=== PATIENT | female | born 1980 | race American Indian/Alaskan Native ===

== ENCOUNTER 2018-09-17 23:27 | Emergency (ER) | payer MEDICAID ==
[2018-09-17] MEDS ORDERED: NACL 0.9% 500 ML 500 ML IV ONE (23:39)
[2018-09-17] MEDS ORDERED: TYLENOL PO ONE (23:49)
[2018-09-17] MEDS ORDERED: NACL 0.9% 1000 ML 1,000 ML IV ONE ×2 (23:49→23:50)
[2018-09-17] MEDS ORDERED: ZOFRAN IV ONE (23:49)
--- NOTE | 2018-09-17 23:55 | Emergency Department Report ---
ED Abdominal Pain HPI - General Chief Complaint: Urogenital-Female Stated Complaint: FLANK PAIN/PAINFUL URINATION Time Seen by Provider: 09/17/18 23:46 Source: patient Mode of arrival: Ambulatory Limitations: No Limitations - History of Present Illness Initial Comments: Patient is 38 years old female with history of hypertension. Patient presented to the ER complaining of left flank pain and lower quadrants abdominal pain for the last 2 days associated with excessive vomiting and fever. Patient denied any chest pain or shortness of breath. MD Complaint: abdominal pain, flank pain - Related Data Allergies Allergy/AdvReac Type Severity Reaction Status Date / Time No Known Allergies Allergy Unverified 09/17/18 23:34 ED Review of Systems ROS: Stated complaint: FLANK PAIN/PAINFUL URINATION Other details as noted in HPI Comment: All other systems reviewed and negative Constitutional: chills, fever Respiratory: denies: cough, orthopnea, shortness of breath, SOB with exertion, SOB at rest, wheezing Cardiovascular: denies: chest pain, palpitations, dyspnea on exertion Gastrointestinal: abdominal pain, nausea, vomiting, diarrhea. denies: constipation Genitourinary: urgency, dysuria. denies: frequency Musculoskeletal: back pain ED Past Medical Hx - Past Medical History Hx Hypertension: Yes - Surgical History Past Surgical History?: No - Social History Smoking Status: Never Smoker Substance Use Type: None ED Physical Exam - General Limitations: No Limitations General appearance: alert, in no apparent distress - Head Head exam: Present: atraumatic, normocephalic, normal inspection - Eye Eye exam: Present: normal appearance - ENT ENT exam: Present: normal exam, normal orophraynx, mucous membranes moist - Neck Neck exam: Present: normal inspection, full ROM. Absent: tenderness, meningismus, lymphadenopathy, thyromegaly - Respiratory Respiratory exam: Present: normal lung sounds bilaterally - Cardiovascular Cardiovascular Exam: Present: tachycardia - GI/Abdominal GI/Abdominal exam: Present: soft, normal bowel sounds. Absent: distended, tenderness, guarding, rebound, rigid, organomegaly, mass, bruit, pulsatile mass, hernia - Extremities Exam Extremities exam: Present: normal inspection, full ROM, normal capillary refill. Absent: pedal edema, calf tenderness - Back Exam Back exam: Present: normal inspection, full ROM, CVA tenderness (L). Absent: CVA tenderness (R) - Neurological Exam Neurological exam: Present: alert, oriented X3, CN II-XII intact, normal gait, reflexes normal - Skin Skin exam: Present: warm, intact, normal color ED Course Vital Signs 09/17/18 09/18/18 09/18/18 23:34 00:15 00:16 Temperature 103.5 F H 103.1 F H Pulse Rate 130 H 112 H Respiratory 20 21 Rate Blood Pressure 115/84 128/85 O2 Sat by Pulse 100 98 Oximetry 09/18/18 09/18/18 09/18/18 00:19 01:45 01:50 Temperature 102.2 F H Pulse Rate 110 H 106 H Respiratory 23 15 Rate Blood Pressure 128/85 128/85 O2 Sat by Pulse 96 100 Oximetry 09/18/18 09/18/18 09/18/18 02:00 02:15 02:31 Temperature Pulse Rate 107 H 122 H 116 H Respiratory 18 18 13 Rate Blood Pressure 138/87 138/87 138/87 O2 Sat by Pulse 99 99 Oximetry 09/18/18 09/18/18 09/18/18 02:45 03:01 03:15 Temperature Pulse Rate 124 H 108 H 120 H Respiratory 30 H 25 H 16 Rate Blood Pressure 138/87 138/87 138/87 O2 Sat by Pulse 100 100 98 Oximetry 09/18/18 09/18/18 09/18/18 03:31 03:45 04:00 Temperature Pulse Rate 126 H 124 H 121 H Respiratory 24 17 25 H Rate Blood Pressure 138/87 138/87 137/80 O2 Sat by Pulse 98 99 97 Oximetry 09/18/18 04:01 Temperature 104.3 F H Pulse Rate Respiratory Rate Blood Pressure O2 Sat by Pulse Oximetry ED Medical Decision Making - Lab Data Result diagrams: 09/18/18 00:48 09/18/18 00:48 - Radiology Data Radiology results: report reviewed Referring Physician: HECTOR ADHIKARI Patient Name: GUSTABO ROMAN Date of : 1980 Sex: Female Report Date: 2018-09-18 Report Status: Finalized Findings [facility] [address] [place] [address] Cat Scan Report Signed Patient: GUSTABO ROMAN MR#: [id number] 30 : 1980 Acct:[id number] Age/Sex: 38 / F ADM Date: 09/17/18 Loc: ED Attending Dr: Ordering Physician: HECTOR ADHIKARI Date of Service: 09/18/18 Procedure(s): CT abdomen pelvis w con Accession Number(s): [id number] cc: HECTOR ToñoJayson ADHIKARI PROCEDURE: CT ABDOMEN PELVIS W CON TECHNIQUE: Routine axial imaging was obtained of the abdomen and pelvis following the intravenous injection of 1 cc of Omnipaque 350. Delayed imaging was obtained through the kidneys ureters and bladder. Sagittal and coronal reconstructions were reviewed. HISTORY: abdominal pain, left flank pain,fever COMPARISONS: None FINDINGS: The lung bases are negative for infiltrates or effusions. There is a small hiatal hernia. The gallbladder has been removed. The liver and biliary tree appear normal. The spleen and adrenal glands appear normal. The pancreas does not show any acute changes. There is perinephric stranding around the left kidney with very mild left-sided hydronephrosis. A stone is not seen in the left ureter. The left nephrogram is slightly heterogeneous. The right kidney is unremarkable. The bowel loops are normal in caliber and course. The appendix is not enlarged. The abdominal aorta is normal in caliber. The portal vein enhances normally. There is no evidence of free fluid or adenopathy. In the pelvis the uterus and bladder appear normal. The skeletal structures are well- maintained. IMPRESSION: Mild left-sided hydronephrosis with left-sided perinephric stranding and slight inhomogeneity in the left nephrogram. The findings may be secondary to a recently passed stone with residual hydronephrosis changes. Left-sided pyelonephritis may also have this appearance.. Cholecystectomy. No evidence of bowel obstruction or ileus. Normal appendix. This document is electronically signed by Stephanie Henry MD., Sep 18 2018 04:45:14 AM ET Transcribed By: RB Dictated By: STEPHAINE HENRY MD Electronically Authenticated By: STEPHANIE HENRY MD Signed Date/Time: 09/18/18446 DD/ 6 TD/TT: 09/18/18236 Critical care attestation.: If time is entered above; I have spent that time in minutes in the direct care of this critically ill patient, excluding procedure time. ED Disposition Clinical Impression: Abdominal pain, Pyelonephritis, Fever Disposition: DC-01 TO HOME OR SELFCARE Is pt being admited?: No Condition: Stable Instructions: Acute Pyelonephritis (ED) Referrals: JESSICA ALBA MD [Primary Care Provider] - 3-5 Days
--- NOTE | 2018-09-18 00:11 | XRay Report ---
PROCEDURE: XR CHEST 1V AP TECHNIQUE: Chest radiograph single view. HISTORY: Chest pain possible Sepsis COMPARISONS: None . FINDINGS: Heart: Normal. Mediastinum/Vessels: Normal. Lungs/Pleural space: Normal. Bony thorax: No acute osseous abnormality. Life support devices: None. IMPRESSION: No acute cardiopulmonary abnormality. This document is electronically signed by Stephanie Fitch DO., Sep 18 2018 12:09:47 AM ET
[2018-09-18] MEDS ORDERED: ZOSYN/NS 3.375GM/50ML 3.375 GM/50 ML BAG IV ONE (00:30)
[2018-09-18 01:02] LABS: Amorphous Crystals,Urine Few; Bacteria,Urine 4+ /HPF (Negative); Bilirubin,Urine NEG (Negative); Blood,Urine SM (Negative); Color,Urine Yellow (Yellow); Hyaline Casts,Urine 3 /LPF; Mucus,Urine FEW /HPF
[2018-09-18 01:04] LABS: WBC,Urine > 182.0 /HPF (0.0-6.0)
[2018-09-18 01:13] LABS: Basophils % (Auto) 0.1 % (0.0-1.8); Hematocrit 26.9 % (30.3-42.9); Hemoglobin 9.2 gm/dl (10.1-14.3); Lymphocytes # (Auto) 0.8 K/mm3 (1.2-5.4); Lymphocytes % (Auto) 7.5 % (13.4-35.0); Mean Corpuscular HGB Conc 34 % (30-34); Mean Corpuscular Volume 77 fl (79-97); Monocytes # (Auto) 0.4 K/mm3 (0.0-0.8); Monocytes % (Auto) 4.3 % (0.0-7.3); Platelet Count 265 K/mm3 (140-440); Red Blood Count 3.48 M/mm3 (3.65-5.03); Red Cell Distribution Width 16.7 % (13.2-15.2)
[2018-09-18 01:23] LABS: INR 1.12 (0.87-1.13)
[2018-09-18] MEDS ORDERED: MORPHINE IV ONE (01:36)
[2018-09-18 01:38] LABS: Alanine Aminotransferase 28 units/L (7-56); Albumin 3.6 g/dL (3.9-5); BUN/Creatinine Ratio 10; Blood Urea Nitrogen 10 mg/dL (7-17); Calcium 8.2 mg/dL (8.4-10.2); Hemolysis Index 0
[2018-09-18] MEDS ORDERED: MORPHINE ONE (01:39)
[2018-09-18] MEDS ORDERED: REGLAN IV ONE (03:12)
[2018-09-18] MEDS: KCL 10MEQ/100ML 10 MEQ/100 ML BAG IV SCH ×2 (03:59→05:44)
[2018-09-18] MEDS ORDERED: IBUPROFEN PO ONE (04:00)
[2018-09-18] MEDS ORDERED: IBUPROFEN ONE (04:03)
--- NOTE | 2018-09-18 04:47 | Cat Scan Report ---
PROCEDURE: CT ABDOMEN PELVIS W CON TECHNIQUE: Routine axial imaging was obtained of the abdomen and pelvis following the intravenous in jection of 1 cc of Omnipaque 350. Delayed imaging was obtained through the kidneys ureters and bladde r. Sagittal and coronal reconstructions were reviewed. HISTORY: abdominal pain, left flank pain,fever COMPARISONS: None FINDINGS: The lung bases are negative for infiltrates or effusions. There is a small hiatal hernia. The gallbladder has been removed. The liver and biliary tree appear normal. The spleen and adrenal gl ands appear normal. The pancreas does not show any acute changes. There is perinephric stranding around the left kidney with very mild left-sided hydronephrosis. A sto ne is not seen in the left ureter. The left nephrogram is slightly heterogeneous. The right kidney is unremarkable. The bowel loops are normal in caliber and course. The appendix is not enlarged. The abdominal aorta i s normal in caliber. The portal vein enhances normally. There is no evidence of free fluid or adenopa thy. In the pelvis the uterus and bladder appear normal. The skeletal structures are well-maintained. IMPRESSION: Mild left-sided hydronephrosis with left-sided perinephric stranding and slight inhomogeneity in the left nephrogram. The findings may be secondary to a recently passed stone with residual hydronephrosi s changes. Left-sided pyelonephritis may also have this appearance.. Cholecystectomy. No evidence of bowel obstruction or ileus. Normal appendix. This document is electronically signed by Zain Henry MD., Sep 18 2018 04:45:14 AM ET
[2018-09-18 06:21] VITALS: BP 113/64
== END 2018-09-18 06:48 | disposition home or self-care (01) ==
LOC: EDSEX → ED 23:27
DX: N12 Tubulo-interstitial nephritis, not specified as acute or chronic (principal); I10 Essential (primary) hypertension
CPT/HCPCS: 36415; 71045; 74177; 80053; 81001; 82140; 82805; 84703; 85025; 85610; 87040; 87076; 87086; 87186; 93005; 93010; 96361; 96365; 96375; 99285; J2270; J2405; J2543; J2765; J3480; J7030; J7040; Q9967

== ENCOUNTER 2019-03-08 13:57 | Emergency (ER) | payer SELFPAY ==
[2019-03-08] MEDS ORDERED: SODIUM CHLORIDE 0.9% 1000 ML 1,000 ML IV ONE (14:55)
--- NOTE | 2019-03-08 15:54 | Ultrasound Report ---
OB Ultrasound HISTORY: Vaginal Bleeding. TECHNIQUE: Grayscale and color Doppler imaging performed. COMPARISON: CT abdomen/pelvis from 09/18/2018 FINDINGS: Transabdominal and endovaginal imaging was performed. Uterus measures 11.0 x 6.2 x 7.0 cm with endometrial echo complex measuring 1.6 cm. The right ovary w as not visualized. The left ovary is normal in size with preserved blood flow. There is a 1.3 cm hypo echoic structure within the uterine wall outside of the endometrial lining posteriorly in the fundal region. There is no internal blood flow. There is a small amount of fluid within the lower uterine se gment which could represent blood clot. No appreciable pelvic free fluid identified. IMPRESSION: 1. Vague hypoechoic structure in the posterior uterine wall near the fundus as outlined above could r epresent a fibroid. No convincing IUP identified. 2. Nonvisualization of the right ovary. 3. Small amount of fluid within the lower uterine segment could represent blood clot. 4. Otherwise nothing acute. Signer Name: Carlos Solis MD Signed: 03/08/2019 3:50 PM Workstation Name: [id number]
[2019-03-08 16:01] LABS: Basophils % (Auto) 0.2 % (0.0-1.8); Eosinophils # (Auto) 0.1 K/mm3 (0.0-0.4); Eosinophils % (Auto) 0.7 % (0.0-4.3); Hematocrit 27.4 % (30.3-42.9); Hemoglobin 9.1 gm/dl (10.1-14.3); Lymphocytes # (Auto) 1.3 K/mm3 (1.2-5.4); Lymphocytes % (Auto) 17.7 % (13.4-35.0); Mean Corpuscular HGB Conc 33 % (30-34); Mean Corpuscular Volume 80 fl (79-97); Monocytes # (Auto) 0.4 K/mm3 (0.0-0.8); Monocytes % (Auto) 6.1 % (0.0-7.3); Platelet Count 307 K/mm3 (140-440); Red Blood Count 3.44 M/mm3 (3.65-5.03); Red Cell Distribution Width 17.2 % (13.2-15.2)
[2019-03-08 16:19] LABS: Alanine Aminotransferase 6 units/L (7-56); Albumin 4.1 g/dL (3.9-5); BUN/Creatinine Ratio 9; Blood Urea Nitrogen 6 mg/dL (7-17); Calcium 8.9 mg/dL (8.4-10.2); Hemolysis Index 33
[2019-03-08 16:39] LABS: HCG Qualitative,Urine Positive (Negative)
[2019-03-08 16:41] LABS: Bacteria,Urine 1+ /HPF (Negative); Bilirubin,Urine NEG (Negative); Blood,Urine LG (Negative); Color,Urine Red (Yellow); Mucus,Urine FEW /HPF; Urobilinogen,Urine < 2.0 mg/dL (<2.0)
[2019-03-08 16:42] LABS: RBC,Urine > 182.0 /HPF (0.0-6.0)
--- NOTE | 2019-03-08 17:47 | Emergency Department Report ---
ED Female HPI - General Chief complaint: Vaginal Bleeding Stated complaint: MISCARRIAGE Time Seen by Provider: 03/08/19 14:36 Source: patient Mode of arrival: Ambulatory Limitations: No Limitations - History of Present Illness MD Complaint: vaginal bleeding -: Gradual, days(s) Radiation: suprapubic Severity: mild Severity scale (0 -10): 1 Quality: cramping Consistency: intermittent Improves with: none Worsens with: none Are you Now?: Yes Associated Symptoms: vaginal bleeding. denies: vaginal discharge, abdominal pain, nausea/vomiting, fever/chills, headaches, loss of appetite, dysuria, rash, seizure, shortness of breath, syncope, weakness - Related Data Previous Rx's Medication Instructions Recorded Last Taken Type Ciprofloxacin HCl [Ciprofloxacin 500 mg PO Q12H #14 tab 09/18/18 Unknown Rx TAB] Ondansetron [Zofran Odt] 4 mg PO Q8HR PRN #14 tab.rapdis 09/18/18 Unknown Rx traMADol [Ultram] 50 mg PO Q6HR PRN #14 tablet 09/18/18 Unknown Rx Allergies Allergy/AdvReac Type Severity Reaction Status Date / Time No Known Allergies Allergy Unverified 09/17/18 23:34 ED Review of Systems ROS: Stated complaint: MISCARRIAGE Other details as noted in HPI Other: GENERAL: No weight change, fatigue, fever, chills, or night sweats SKIN: No changes in skin or hair, no itching, no rashes, no jaundice HEAD: No trauma, headache, or visual changes EYES: No blurriness, tearing, itching, acute visual loss, conjunctival discoloration, or scleral icterus EARS: No hearing loss, tinnitus, vertigo, or earache NOSE: No rhinorrhea, stuffiness, sneezing, itching, or epistaxis MOUTH: No bleeding gums, hoarseness, sore throat, or swelling CARDIAC: No new murmur, chest pain, palpitations, dyspnea on exertion, orthopnea, PND, or edema RESPIRATORY: No shortness of breath, wheeze, cough, sputum production, hemoptysis, pneumonia, asthma, bronchitis, or emphysema GI: No change in appetite, nausea, vomiting, dysphagia, diarrhea, constipation, hematemesis, melena, hematochezia, or abdominal pain URINARY: No frequency, urgency, polyuria, dysuria, hematuria, or incontinence MUSCULOSKELETAL: No muscle weakness, joint stiffness, decrease in range of motion, redness, swelling NEUROLOGIC: No headache, syncope, loss of sensation, numbness, tingling, tremors, weakness, paralysis, seizures HEMATOLOGIC: No anemia, easy bruising, bleeding, petechiae, or purpura ENDOCRINE: No hot or cold intolerance, sweating, polyuria, polydipsia or, polyp hagia no thyroid problems PSYCHIATRIC: No change in mood, no anxiety, no depression GENITAL: Female: Vag bleeding. No dishcarge ED Past Medical Hx - Past Medical History Previous Medical History?: Yes Hx Hypertension: Yes Additional medical history: Abortions x 3, Vaginal delivery x 14, Miscarriage x1 - Surgical History Past Surgical History?: Yes Additional Surgical History: D&C times 3 - Social History Smoking Status: Never Smoker Substance Use Type: Prescribed - Medications Home Medications: Home Medications Medication Instructions Recorded Confirmed Last Taken Type Ciprofloxacin HCl [Ciprofloxacin 500 mg PO Q12H #14 tab 09/18/18 Unknown Rx TAB] Ondansetron [Zofran Odt] 4 mg PO Q8HR PRN #14 tab.rapdis 09/18/18 Unknown Rx traMADol [Ultram] 50 mg PO Q6HR PRN #14 tablet 09/18/18 Unknown Rx ED Physical Exam - General Limitations: No Limitations - Other Other exam information: GENERAL: Patient in no acute distress HEAD: Normocephalic, atraumatic EYES: PERRLA, EOM intact, no scleral icterus, no conjunctival hemorrhage, visual valdez and acuity wnl NOSE: No tenderness, discharge, sinus tenderness MOUTH: No erythema, bleeding, exudate HEART: Regular rate and rhythm, no murmur, S1-S2 are auscultated, no edema, pulses are symmetric LUNGS: No respiratory distress. Bilateral breath sounds, No tachypnea, No retractions, No wheezing, rales, rhonchi ABDOMEN: Normal bowel sounds, abdomen soft, no tenderness, no rebound, no guarding, no distention, no masses, no CVA tenderness MUSCULOSKELETAL: Normal joint range of motion, no redness, no swelling, no tenderness NEUROLOGIC: GCS 15, Alert and Oriented x3, Cranial nerves intact, normal sensation, normal strength, no cerebellar deficit, NIHSS 0 PSYCHIATRIC: No homicidal or suicidal ideation, no anxiety, no depression, no hallucinations SKIN: Skin is warm and dry, no wounds, no rashes ED Course Vital Signs 03/08/19 13:57 Temperature 98.9 F Pulse Rate 117 H Respiratory 20 Rate Blood Pressure 154/98 O2 Sat by Pulse 99 Oximetry ED Medical Decision Making - Lab Data Result diagrams: 03/08/19 15:44 03/08/19 15:44 Laboratory Results - last 24 hr 03/08/19 03/08/19 03/08/19 15:44 15:44 15:44 WBC 7.3 RBC 3.44 L Hgb 9.1 L Hct 27.4 L MCV 80 MCH 26 L MCHC 33 RDW 17.2 H Plt Count 307 Lymph % (Auto) 17.7 Crane % (Auto) 6.1 Eos % (Auto) 0.7 Baso % (Auto) 0.2 Lymph # 1.3 Crane # 0.4 Eos # 0.1 Baso # 0.0 Seg Neutrophils % 75.3 H Seg Neutrophils # 5.5 Sodium 140 Potassium 3.0 L Chloride 103.5 Carbon Dioxide 24 Anion Gap 16 BUN 6 L Creatinine 0.7 Estimated GFR > 60 BUN/Creatinine Ratio 9 Glucose 105 H Calcium 8.9 Total Bilirubin 0.20 AST 13 ALT 6 L Alkaline Phosphatase 55 Total Protein 7.0 Albumin 4.1 Albumin/Globulin Ratio 1.4 HCG, Quant 2223 H Urine Color Urine Turbidity Urine pH Ur Specific [place] Urine Protein Urine Glucose (UA) Urine Ketones Urine Blood Urine Nitrite Ur Reducing Substances Urine Bilirubin Urine Ictotest Urine Urobilinogen Ur Leukocyte Esterase Urine WBC (Auto) Urine RBC (Auto) Urine Bacteria (Auto) Urine Mucus Urine HCG, Qual Blood Type Antibody Screen 03/08/19 03/08/19 15:44 16:26 WBC RBC Hgb Hct MCV MCH MCHC RDW Plt Count Lymph % (Auto) Crane % (Auto) Eos % (Auto) Baso % (Auto) Lymph # Crane # Eos # Baso # Seg Neutrophils % Seg Neutrophils # Sodium Potassium Chloride Carbon Dioxide Anion Gap BUN Creatinine Estimated GFR BUN/Creatinine Ratio Glucose Calcium Total Bilirubin AST ALT Alkaline Phosphatase Total Protein Albumin Albumin/Globulin Ratio HCG, Quant Urine Color Red Urine Turbidity Clear Urine pH 7.0 Ur Specific [place] 1.005 Urine Protein 100 mg/dl Urine Glucose (UA) Neg Urine Ketones Neg Urine Blood Lg Urine Nitrite Neg Ur Reducing Substances Not Reportable Urine Bilirubin Neg Urine Ictotest Not Reportable Urine Urobilinogen < 2.0 Ur Leukocyte Esterase Tr Urine WBC (Auto) 9.0 H Urine RBC (Auto) > 182.0 Urine Bacteria (Auto) 1+ Urine Mucus Few Urine HCG, Qual Positive A Blood Type B POSITIVE Antibody Screen Negative - Radiology Data Radiology results: report reviewed - Medical Decision Making At 1746 patient comfortable. Updated with results. Dr. Weber OB call back updated. Reports ectopic in the uterine wall unlikely. Recommends patient safe for discharge with 48 hour follow up for repeat quant. Recommends patient return if any worsening. Plan discharge with outpatient follow up. Return if any worsening. Critical care attestation.: If time is entered above; I have spent that time in minutes in the direct care of this critically ill patient, excluding procedure time. ED Disposition Clinical Impression: Threatened Anemia Qualifiers: Anemia type: unspecified type Qualified Code(s): D64.9 - Anemia, unspecified Disposition: DC-01 TO HOME OR SELFCARE Is pt being admited?: No Condition: Stable Instructions: Threatened Miscarriage (ED), Anemia (ED) Referrals: MARELY WEBER MD [Staff Physician] - 2-3 Days JESSICA ALBA MD [Staff Physician] - 2-3 Days [facility] [Outside] - as needed Time of Disposition: 17:52
[2019-03-08 18:35] VITALS: BP 148/93
== END 2019-03-08 19:00 | disposition home or self-care (01) ==
LOC: ED 13:57
DX: O20.0 Threatened abortion (principal); O99.011 Anemia complicating pregnancy, first trimester; O16.1 Unspecified maternal hypertension, first trimester; Z98.890 Other specified postprocedural states; Z3A.01 Less than 8 weeks gestation of pregnancy
CPT/HCPCS: 36415; 76801; 80053; 81001; 81025; 84702; 85025; 86850; 86900; 86901; 87086; 96360; 99285; J7030

== ENCOUNTER 2019-03-13 14:43 | Emergency (ER) | payer SELFPAY ==
[2019-03-13 14:56] VITALS: BP 140/91
--- NOTE | 2019-03-13 15:25 | Emergency Department Report ---
Chief Complaint: Urogenital-Female Stated Complaint: VAGINAL ODOR/DOC ORDER - HPI History of Present Illness: 38yo Bf states that she had a miscarriage at home and a D&C yesterday. She presents today due to increase bleeding and odor. - Exam Vital Signs: Vital Signs 03/13/19 14:55 Temperature 98.7 F Pulse Rate 97 H Respiratory 16 Rate Blood Pressure 140/91 O2 Sat by Pulse 100 Oximetry MSE screening note: Focused history and physical exam performed. Due to findings the following was ordered: ED Disposition for MSE Condition: Stable
[2019-03-13 15:46] LABS: Bilirubin,Urine NEG (Negative); Blood,Urine LG (Negative); Color,Urine Colorless (Yellow); Protein,Urine <15 mg/dL mg/dL (Negative); RBC,Urine < 1.0 /HPF (0.0-6.0); Urobilinogen,Urine < 2.0 mg/dL (<2.0)
[2019-03-13 16:43] LABS: Basophils % (Auto) 0.3 % (0.0-1.8); Eosinophils % (Auto) 0.4 % (0.0-4.3); Hematocrit 21.9 % (30.3-42.9); Hemoglobin 7.2 gm/dl (10.1-14.3); Lymphocytes # (Auto) 1.9 K/mm3 (1.2-5.4); Lymphocytes % (Auto) 26.1 % (13.4-35.0); Mean Corpuscular HGB Conc 33 % (30-34); Mean Corpuscular Volume 81 fl (79-97); Monocytes # (Auto) 0.4 K/mm3 (0.0-0.8); Monocytes % (Auto) 5.6 % (0.0-7.3); Platelet Count 365 K/mm3 (140-440); Red Blood Count 2.69 M/mm3 (3.65-5.03); Red Cell Distribution Width 18.2 % (13.2-15.2)
--- NOTE | 2019-03-13 16:57 | Ultrasound Report ---
US OB transvaginal INDICATION / CLINICAL INFORMATION: increase bleeding after miscarriage and D C. COMPARISON: 03/08/2019 FINDINGS: 3 cm posterior uterine fibroid. Endometrial stripe is minimally thickened, measuring 1.2 cm in thickn ess. There is no gestational sac. IMPRESSION: 1. No evidence of intrauterine . 2. 3 cm posterior uterine fibroid. Signer Name: Darius Dominguez MD Signed: 03/13/2019 4:53 PM Workstation Name: [id number]
[2019-03-13 17:05] LABS: Alanine Aminotransferase 7 units/L (7-56); Albumin 4.7 g/dL (3.9-5); BUN/Creatinine Ratio 10; Blood Urea Nitrogen 6 mg/dL (7-17); Calcium 8.9 mg/dL (8.4-10.2); Hemolysis Index 17
[2019-03-13] MEDS ORDERED: POTASSIUM CHLORIDE ER 20 MEQ TAB PO ONE (17:17)
--- NOTE | 2019-03-13 17:24 | Emergency Department Report ---
ED Female HPI - General Chief complaint: Urogenital-Female Stated complaint: VAGINAL ODOR/DOC ORDER Time Seen by Provider: 03/13/19 15:32 Source: patient Mode of arrival: Ambulatory Limitations: No Limitations - History of Present Illness Initial comments: This is a 38-year-old -[place] female who presents to the emergency room with the foul smelling vaginal bleeding. Patient states she was informed of active miscarriage 5 days ago. Patient states blood clots are no longer passing but she continues to have dark brown foul-smelling bleeding. Reports the bleeding is not as heavy as before. She denies abdominal pain, chest pain, dizziness, nausea or vomiting, urinary frequency, urgency, or dysuria. MD Complaint: vaginal bleeding Onset/Timin -: days(s) Severity scale (0 -10): 0 Improves with: none Worsens with: none Are you Now?: No Associated Symptoms: vaginal bleeding - Related Data Previous Rx's Medication Instructions Recorded Last Taken Type Ciprofloxacin HCl [Ciprofloxacin 500 mg PO Q12H #14 tab 09/18/18 Unknown Rx TAB] Ondansetron [Zofran Odt] 4 mg PO Q8HR PRN #14 tab.rapdis 09/18/18 Unknown Rx traMADol [Ultram] 50 mg PO Q6HR PRN #14 tablet 09/18/18 Unknown Rx Ferrous Sulfate [Ferrous Sulfate 324 mg PO BID #30 tablet.dr 03/13/19 Unknown Rx 324 MG] metroNIDAZOLE [Flagyl TAB] 500 mg PO Q12HR #14 tab 03/13/19 Unknown Rx Allergies Allergy/AdvReac Type Severity Reaction Status Date / Time No Known Allergies Allergy Unverified 09/17/18 23:34 ED Review of Systems ROS: Stated complaint: VAGINAL ODOR/DOC ORDER Other details as noted in HPI Constitutional: denies: chills, fever Respiratory: denies: cough, shortness of breath, wheezing Cardiovascular: denies: chest pain, palpitations Gastrointestinal: denies: abdominal pain, nausea, diarrhea Genitourinary: other (foul vaginal bleeding). denies: urgency, dysuria, discharge Musculoskeletal: denies: back pain, joint swelling, arthralgia Skin: denies: rash, lesions Neurological: denies: headache, weakness, paresthesias Psychiatric: denies: anxiety, depression ED Past Medical Hx - Past Medical History Previous Medical History?: Yes Hx Hypertension: Yes Additional medical history: Abortions x 3, Vaginal delivery x 14, Miscarriage x1 - Surgical History Past Surgical History?: Yes Additional Surgical History: D&C times 3 - Social History Smoking Status: Never Smoker Substance Use Type: None - Medications Home Medications: Home Medications Medication Instructions Recorded Confirmed Last Taken Type Ciprofloxacin HCl [Ciprofloxacin 500 mg PO Q12H #14 tab 09/18/18 Unknown Rx TAB] Ondansetron [Zofran Odt] 4 mg PO Q8HR PRN #14 tab.rapdis 09/18/18 Unknown Rx traMADol [Ultram] 50 mg PO Q6HR PRN #14 tablet 09/18/18 Unknown Rx Ferrous Sulfate [Ferrous Sulfate 324 mg PO BID #30 tablet.dr 03/13/19 Unknown Rx 324 MG] metroNIDAZOLE [Flagyl TAB] 500 mg PO Q12HR #14 tab 03/13/19 Unknown Rx ED Physical Exam - General Limitations: No Limitations General appearance: alert, in no apparent distress, obese - Respiratory Respiratory exam: Present: normal lung sounds bilaterally. Absent: respiratory distress - Cardiovascular Cardiovascular Exam: Present: regular rate, normal rhythm. Absent: systolic murmur, diastolic murmur, rubs, gallop - GI/Abdominal GI/Abdominal exam: Present: soft, normal bowel sounds. Absent: distended, tenderness, guarding, rebound, rigid, organomegaly - Back Exam Back exam: Absent: CVA tenderness (R), CVA tenderness (L) - Neurological Exam Neurological exam: Present: alert, oriented X3, normal gait - Psychiatric Psychiatric exam: Present: normal affect, normal mood - Skin Skin exam: Present: warm, dry, intact, normal color. Absent: rash ED Course Vital Signs 03/13/19 14:55 Temperature 98.7 F Pulse Rate 97 H Respiratory 16 Rate Blood Pressure 140/91 O2 Sat by Pulse 100 Oximetry ED Medical Decision Making - Lab Data Result diagrams: 03/13/19 16:23 03/13/19 16:23 Lab Results 03/13/19 03/13/19 03/13/19 Range/Units 16:23 16:23 Unknown WBC 7.4 (4.5-11.0) K/mm3 RBC 2.69 L (3.65-5.03) M/mm3 Hgb 7.2 L (10.1-14.3) gm/dl Hct 21.9 L (30.3-42.9) % MCV 81 (79-97) fl MCH 27 L (28-32) pg MCHC 33 (30-34) % RDW 18.2 H (13.2-15.2) % Plt Count 365 (140-440) K/mm3 Lymph % (Auto) 26.1 (13.4-35.0) % Haines % (Auto) 5.6 (0.0-7.3) % Eos % (Auto) 0.4 (0.0-4.3) % Baso % (Auto) 0.3 (0.0-1.8) % Lymph # 1.9 (1.2-5.4) K/mm3 Haines # 0.4 (0.0-0.8) K/mm3 Eos # 0.0 (0.0-0.4) K/mm3 Baso # 0.0 (0.0-0.1) K/mm3 Seg Neutrophils % 67.6 (40.0-70.0) % Seg Neutrophils # 5.0 (1.8-7.7) K/mm3 Sodium 140 (137-145) mmol/L Potassium 2.8 L* (3.6-5.0) mmol/L Chloride 101.4 (98-107) mmol/L Carbon Dioxide 23 (22-30) mmol/L Anion Gap 18 mmol/L BUN 6 L (7-17) mg/dL Creatinine 0.6 L (0.7-1.2) mg/dL Estimated GFR > 60 ml/min BUN/Creatinine Ratio 10 % Glucose 111 H (65-100) mg/dL Calcium 8.9 (8.4-10.2) mg/dL Total Bilirubin 0.20 (0.1-1.2) mg/dL AST 13 (5-40) units/L ALT 7 (7-56) units/L Alkaline Phosphatase 57 (35-129) units/L Total Protein 7.8 (6.3-8.2) g/dL Albumin 4.7 (3.9-5) g/dL Albumin/Globulin Ratio 1.5 % Urine Color Colorless (Yellow) Urine Turbidity Clear (Clear) Urine pH 7.0 (5.0-7.0) Ur Specific Preston 1.001 L (1.003-1.030) Urine Protein <15 mg/dl (Negative) mg/dL Urine Glucose (UA) Neg (Negative) mg/dL Urine Ketones Neg (Negative) mg/dL Urine Blood Lg (Negative) Urine Nitrite Neg (Negative) Urine Bilirubin Neg (Negative) Urine Urobilinogen < 2.0 (<2.0) mg/dL Ur Leukocyte Esterase Neg (Negative) Urine WBC (Auto) 1.0 (0.0-6.0) /HPF Urine RBC (Auto) < 1.0 (0.0-6.0) /HPF - Radiology Data Radiology results: report reviewed US OB transvaginal INDICATION / CLINICAL INFORMATION: increase bleeding after miscarriage and D C. COMPARISON: 03/08/2019 FINDINGS: 3 cm posterior uterine fibroid. Endometrial stripe is minimally thickened, measuring 1.2 cm in thickness. There is no gestational sac. IMPRESSION: 1. No evidence of intrauterine . 2. 3 cm posterior uterine fibroid. - Medical Decision Making Patient was examined by me. Vitals are stable and in no acute distress. Obtained labs and transvaginal ultrasound. Hypokalemia, given Klor-Con 40 mL once by mouth. H&H trending down. Patient will be started on iron supplementation. Past medical history of iron deficiency anemia. Discharged home in stable condition. Encouraged to follow up with gynecology. Start metronidazole. Discussed prevention options. F/U with PCP or Health Department. Critical care attestation.: If time is entered above; I have spent that time in minutes in the direct care of this critically ill patient, excluding procedure time. ED Disposition Clinical Impression: Vaginal bleeding, Vaginal discharge, bloody Anemia Qualifiers: Anemia type: unspecified type Qualified Code(s): D64.9 - Anemia, unspecified Disposition: DC-01 TO HOME OR SELFCARE Is pt being admited?: No Condition: Stable Instructions: Iron Rich Diet (ED), Iron Deficiency Anemia (ED) Additional Instructions: Follow-up with the director of pediatric rehabilitation from the list below. Prescriptions: Ferrous Sulfate [Ferrous Sulfate 324 MG] 324 mg PO BID #30 tablet. metroNIDAZOLE [Flagyl TAB] 500 mg PO Q12HR #14 tab Referrals: [facility] [Provider Group] - 3-5 Days [facility] [facility] [employer], [facility] [Provider Group] - 3-5 Days [facility] [Provider Group] - 3-5 Days Forms: Work/School Release Form(ED) Time of Disposition: 19:10
== END 2019-03-13 19:30 | disposition home or self-care (01) ==
LOC: ED 14:43
DX: N93.9 Abnormal uterine and vaginal bleeding, unspecified (principal); I10 Essential (primary) hypertension; D50.9 Iron deficiency anemia, unspecified; Z79.899 Other long term (current) drug therapy
CPT/HCPCS: 36415; 76817; 80053; 81001; 85025